=== PATIENT | female | born 1985 | race Caucasian/White ===

== ENCOUNTER 2018-08-12 10:34 | Inpatient (IN) | payer MEDICAID ==
[~2018-08-12] VITALS: Ht 162.6 cm; Wt 129.5 kg
[2018-08-12] VITALS (16 sets, daily range): BP systolic 132–172; BP diastolic 66–104; Ht 162.6 cm; Wt 129.5 kg
[2018-08-12] MEDS ORDERED: LISINOPRIL40 MG PO (10:41)
[2018-08-12 11:18] LABS: BASOPHILS 0.6 % (0-2); EOSINOPHILS 2.6 % (0-7); HEMATOCRIT 46.4 % (36.0-48.0); HEMOGLOBIN 16.6 g/dL (12-16); IMMATURE GRANULOCYTES 0.3 % (0-5); LYMPHOCYTES 24.2 % (15-50); MCH 32.5 pg (26.0-34.0); MCHC 35.8 g/dL (31.0-37.0); MCV 90.8 fL (80.0-100.0); MEAN PLATELET VOLUME 9.9 fL (7.4-10.4); MONOCYTES 8.3 % (2-11); PLATELET COUNT 226 10x3/uL (130-400); RBC 5.11 10x6/uL (4.00-5.40); RDW 12.2 % (11.5-14.5); WBC 11.1 10x3/uL (4.8-10.8)
[2018-08-12 11:32] LABS: ALBUMIN 3.7 g/dL (3.4-5.0); ALKALINE PHOSPHATASE 65 U/L (46-116); ALT (SGPT) 29 U/L (10-68); CALC OSMOLALITY 278 mosm/kg (275-300); CALCIUM 8.7 mg/dL (8.5-10.1); CARBON DIOXIDE 27.1 mmol/L (21.0-32.0); CHLORIDE - SERUM 102 mmol/L (98-107); CREATININE - SERUM 0.9 mg/dL (0.6-1.3); GLUCOSE 150 mg/dL (74-106); POTASSIUM - SERUM 3.9 mmol/L (3.5-5.1); PROTEIN - SERUM 7.9 g/dL (6.4-8.2); SODIUM 138 mmol/L (136-145); UREA NITROGEN 13 mg/dL (7-18); eGFR NON AFRICAN AMERICAN 77 mL/min (90-120)
[2018-08-12 11:35] LABS: AMYLASE - SERUM 25 U/L (25-115); LIPASE 147 U/L (73-393)
[2018-08-12 11:39] LABS: TROPONIN-I < 0.017 ng/mL (0.000-0.060)
[2018-08-12 11:55] LABS: APPEARANCE HAZY (CLEAR); BILIRUBIN NEGATIVE (NEGATIVE); COLOR YELLOW (YELLOW); GLUCOSE NEGATIVE (NEGATIVE); HCG URINE NEGATIVE (NEGATIVE); KETONE NEGATIVE (NEGATIVE); NITRITE NEGATIVE (NEGATIVE); PROTEIN NEGATIVE (NEGATIVE); UROBILINOGEN NORMAL (NORMAL)
[2018-08-12 12:00] LABS: BACTERIA MODERATE /hpf (NONE SEEN); CALCIUM OXALATE CRYSTALS OCC /hpf (NONE SEEN); EPITHELIAL CELLS 0-5 /hpf (0-5); RED CELLS - URINE OCC /hpf (0-5); WHITE CELLS - URINE 0-5 /hpf (0-5)
--- NOTE | 2018-08-12 16:07 | NUR ---
1500 PATIENT HAS A FEW RAISED RED PIMPLE AREAS ON ABDOMEN, DR PADILLA AWARE, AMBER.
--- NOTE | 2018-08-12 17:10 | NUR ---
PT ARRIVES TO UNIT VIA RR. DROWSY- VERBALLY RESPONDS APPRO TO QUESTIONS. O2 AT 4L/NC. IV LT ACS- NS AT 125CC/HR PER PUMP AT THIS TIME. ABD DRESSING INTACT- SMALL AREA SERO SANG FLUID NOTED- MARKED WITH PEN. DELA CRUZ CATH WITH YELLOW URINE RETURN.
--- NOTE | 2018-08-12 17:33 | NUR ---
methods engineer dilaudid setup and instructed pt on use.family at bedside.
--- NOTE | 2018-08-12 17:51 | NUR ---
AWAKE AND TALKING WITH FAMILY. ICE CHIPS GIVEN.
--- NOTE | 2018-08-12 18:00 | NUR ---
o2 sat drops when pt sleeping or dozing. encouraged deep breaths.
--- NOTE | 2018-08-12 18:15 | NUR ---
pt talking on cell phone. states is sore- requesting sprite. sprite given.
--- NOTE | 2018-08-12 18:30 | NUR ---
incentive cameron used.
--- NOTE | 2018-08-12 18:36 | NUR ---
REPORT OF PT BP, REQUESTING LIQUIDS,O2 AT 2 LITERS. NEW ORDER RECEIVED.
--- NOTE | 2018-08-12 18:53 | NUR ---
awake and talking with family.
--- NOTE | 2018-08-12 19:00 | NUR ---
report to pm shift.
--- NOTE | 2018-08-12 19:25 | NUR ---
PT AAOX3, BP 160/82 RA, PT VERIFIES LISINOPRIL 40MG CORRECT DOSE AND REPORTS TAKING THIS DOSE TWICE DAILY. LEFT A/C PIV SITE BENIGN TO INSPECTION, INFUSING LR AT 125ML/HR AND DILAUDID CLIENT RENEWAL SPECIALIST WITH BUTTON WITHIN EASY REACH OF PT, TOLERATING SIPS CLEAR LIQUIDS, O2 AT 2 L/MIN PER NC, CONVERSANT RESPONDING APPROPRIATELY, LUNGS CTAB, HEART RRR, HYPOACTIVE BOWEL SOUNDS X4 QUADS, DENIES NAUSEA, DENIES PAIN AT REST, USING CLIENT RENEWAL SPECIALIST BUTTON WITH THERAPEUTIC EFFECT, VERTICAL INCISION WITH BIOOCCLUSIVE DRESSING AND NOTED OLD DRAINAGE TO DRESSING, LARIOS FREELY, SCDS IN PLACE AND FUNCTIONING APPROPRIATELY. CONCENTRATED URINE NOTED TO DELA CRUZ CHAMBER. LEMON NOORVIK SODA PROVIDED UPON REQUEST, CALL LIGHT IN EASY REACH. CONTINUE TO MONITOR.
--- NOTE | 2018-08-12 20:22 | NUR ---
ADMITTING ASSESSMENT STARTED, IV IN LEFT AC INTACT WITH NO REDNESS OR EDEMA INFUSING VIA PUMP LR AT 125 ML/HR, DILAUDID ANALYTICAL LABORATORY TECHNICIAN FOR PAIN MANAGEMENT PER MD ORDERS, SEE EMAR, ASHLEY INC WITH SMALL DRESSING INTACT WITH SLIGHT DRIED DRAINAGE NOTED, FRESH ICE PACK TO ABD, DELA CRUZ CATH INTACT DRAINING DARK YELLOW URINE, SCD'S ON AND WORKING PROPERLY, FAMILY AT BEDSIDE
--- NOTE | 2018-08-12 20:32 | NUR ---
ADMITTING ASSESSMENT COMPLETED, PT ORIENTED TO ROOM, BED IN LOW POSITION, SIDE RAILS X 2, CALL LIGHT IN REACH
--- NOTE | 2018-08-12 20:50 | NUR ---
ADM JACK SUAZO PER MD ORDERS, SEE CRISTELA, PT INST ON AND DEMONSTRATED I.S. WITH GOOD EFFORT
--- NOTE | 2018-08-12 21:23 | NUR ---
PT AWAKE, VISITING WITH FRIEND, RATES PAIN 3/10, STATES "IT JUST FLUCTUATES BACK AND FORTH", PT DENIES NEEDS AT THIS TIME
--- NOTE | 2018-08-12 23:00 | NUR ---
PT VISITNG WITH FRIEND, VS OBTAINED, CONTINUES USING PAPER CAP MACHINE OPERATOR BUTTON FOR PAIN MANAGEMENT, REPORTS THAT IT KEEPS PAIN UNDER CONTROL, USING I.S. INST WITH GOOD EFFORT, REQUESTED AND SERVED FRESH H20, DENIES FURTHER NEEDS
--- NOTE | 2018-08-12 23:18 | NUR ---
REPORT TO MELINA PALACIOS RN
--- NOTE | 2018-08-13 01:00 | NUR ---
zofran 4 mg slow ivp per mdorders and pt request. ice water provided per pt request and 250 ml urine noted in urometer.
--- NOTE | 2018-08-13 02:49 | NUR ---
pt sitting up in bed listening to music, denies needs at this time. 250ml urine noted in urometer.
--- NOTE | 2018-08-13 03:50 | NUR ---
PTS IV BEEPING OCCLUDED, THIS RN TO BEDSIDE, PATIENTS IV WITHOUT SWELLING, REDNESS OR SIGNS OF INFILTRATION. TUBING STRAIGHTENED OUT AND PATIENTS ARM RESTED ON A PILLOW. NO FURTHER NEEDS IDENTIFIED AT THIS TIME. WILL CONTINUE TO MONITOR
[2018-08-13 06:38] LABS: BASOPHILS 0.1 % (0-2); EOSINOPHILS 0.1 % (0-7); HEMATOCRIT 41.2 % (36.0-48.0); HEMOGLOBIN 14.3 g/dL (12-16); IMMATURE GRANULOCYTES 0.3 % (0-5); LYMPHOCYTES 9.8 % (15-50); MCH 31.8 pg (26.0-34.0); MCHC 34.7 g/dL (31.0-37.0); MCV 91.8 fL (80.0-100.0); MEAN PLATELET VOLUME 10.1 fL (7.4-10.4); MONOCYTES 5.1 % (2-11); NEUTROPHILS 84.6 % (40-80); PLATELET COUNT 229 10x3/uL (130-400); RBC 4.49 10x6/uL (4.00-5.40); RDW 12.3 % (11.5-14.5)
[2018-08-13 06:45] LABS: CALC OSMOLALITY 280 mosm/kg (275-300); CALCIUM 8.5 mg/dL (8.5-10.1); CARBON DIOXIDE 23.4 mmol/L (21.0-32.0); CHLORIDE - SERUM 103 mmol/L (98-107); CREATININE - SERUM 0.9 mg/dL (0.6-1.3); GLUCOSE 183 mg/dL (74-106); POTASSIUM - SERUM 4.2 mmol/L (3.5-5.1); SODIUM 138 mmol/L (136-145); UREA NITROGEN 12 mg/dL (7-18); eGFR NON AFRICAN AMERICAN 77 mL/min (90-120)
[2018-08-13 07:38] VITALS: BP 110/60
--- NOTE | 2018-08-13 07:38 | NUR ---
RN TO BEDSIDE. SHIFT REPORT COMPLETED AT THIS TIME. PT IS AAOX3, HR-RRR, PPP, BREATH SOUNDS CLEAR & UNLABORED X2. BOWEL SOUNDS ACTIVE X4. VERTICAL ABD INCISION WITH LARGE PRIMAPORE DRESSING C/D/I. PIV TO LT AC WITH LR INFUSING AT 125ML/HR AND DILAUDID FARM PLANNER IN PLACE. PT STATES PAIN IS WELL CONTROLLED. SCD'S IN PLACE BILATERALLY. DELA CRUZ CATH DRAINING TO GRAVITY WITH 400ML DARK YELLOW URINE NOTED IN UROMETER. PT DENIES PAIN OR NEEDS. DR PADILLA TO ROOM TO ASSESS PT AT 0745. DRESSING REMOVED. VERTICAL INCISION WITH REYNA C/D/I AND WELL APPROXIMATED. FARM PLANNER BUTTON PRESSED PER PT. V/O RCVD TO ADVANCE PT TO REGULAR DIET, D/C DELA CRUZ CATH AND PT MAY AMB. ALSO STATES WILL PLACE ORDERS IN [facility]. PT DENIES FURTHER NEEDS AT THIS TIME. BED LOW, WHEELS LOCKED, CALL LIGHT AND PHONE WITHIN REACH, SIDE RAILS UP X2.
[2018-08-13 08:51] LABS: WBC 14.6 10x3/uL (4.8-10.8)
--- NOTE | 2018-08-13 09:17 | NUR ---
RN TO BEDSIDE. PT EATING BREAKFAST TRAY AT THIS TIME. WILL RETURN TO D/C DELA CRUZ CATH. PT IS AGREEABLE AND DENIES NEEDS.
--- NOTE | 2018-08-13 10:00 | NUR ---
THIS RN TO BEDSIDE TO INFORM PT THAT SHE WILL BE TRANSFERED TO . PT VERBALIZES UNDERSTANDING AND IS AGREEABLE. PT CURRENTLY AA&O X 4. RATES PAIN 4/10. PT PUSHES INSTRUMENTATION ENGINEER BUTTON ONCE MORE PRIOR TO MOVING. IV SITE SALINE LOCKED. SITE WNL. PT'S DELA CRUZ CATH REMOVED INTACT. APPROX 250ML URINE NOTED IN UROMETER. TOTAL OF 2200ML EMPTIED FROM DELA CRUZ BAG. PT TO SITTING ON SIDE OF BED W/OUT ASSISTANCE. PT ASSISTED W/PUTTING PANTIES AND SOCKS ON. PT TRANSFERED TO 1221. REPORT GIVEN TO Fidel KELLER RN
--- NOTE | 2018-08-13 10:20 | NUR ---
TRANSFERRED FROM L AND D TO ROOM 1221 PER . REQUESTS TO GO OUTSIDE FOR SMOKE. REQUEST DENIED STATING PATIENT NEEDS TO BE ON UNIT FOR NURSES TO MONITOR. NICOTENE PATCH OFFERED AND ACCEPTED. DR PADILLA NOTIFIED OF SAME. NO SIGNS OF RESP DISTRESS OR OTHER DISTRESS NOTED OR REPORTED. SKIN WARM DRY AND PINK. VERTICAL ABD INCISION NOTED WITH MARGINS WELL APPROXIMATED; REYNA INTACT; SLIGHT REDNESS AT REYNA; NO SIGNS OF SWELLING, DRAINAGE OR FEVER.
[2018-08-13 11:25] VITALS: BP 127/65
--- NOTE | 2018-08-13 11:25 | NUR ---
VSS. VOIDED APPROX 50ML URINE; PALE YELLOW. UP AND ABOUT IN ROOM.
--- NOTE | 2018-08-13 13:00 | NUR ---
WALKING IN HDZ. REPORTS FEELING BETTER. NO SIGNS OF DISTRESS. SKIN WARM DRY AND PINK.
--- NOTE | 2018-08-13 14:00 | NUR ---
CALLS NURSE TO REPORTS SOME LEAKAGE OF BLOODY FLUID FROM VERTICAL INCISION AT ABD. NO ACTIVE LEAKAGE NOTED. PLACED PERIPAD AT ABD SKIN FOLDS TO MAINTAIN DRYNESS.
--- NOTE | 2018-08-13 16:00 | NUR ---
WALKING IN HDZ STATING HER ABD INCISION IS STILL BURNING BUT PAIN HAS EASED SOME SINCE LAST PAIN PILL.
--- NOTE | 2018-08-13 18:00 | NUR ---
REMAINS STABLE WITH NO SIGNS OF RESP DISTRESS OR OTHER DISTRESS NOTED OR REPORTED. STATES ABD FEELS HOT TO HER BUT SKIN IS NOT FEVERISH
--- NOTE | 2018-08-13 19:12 | NUR ---
BEDSIDE REPORT DONE, PT ON PHONE. BED IN LOW POSITION WITH UPPER SIDE RAILS RAISED X2. CALL LIGHT AND PHONE WITHIN REACH. WILL CONTINUE TO MONITOR AND ASSIST PRN.
[2018-08-13 20:17] VITALS: BP 133/84
--- NOTE | 2018-08-13 20:17 | NUR ---
SHIFT ASSESSMENT COMPLETED. PT NOTED TO BE TEARFUL AND GRIMACING, PAIN 10/10, NORCO GIVEN PER REQUEST AND ORDER. PT REPORTS THAT SHE HAD JUST GOTTEN BACK IN BED FROM AMBULATING IN ROOM. BREATH SOUNDS CLEAR AND EQUAL BILATERALLY. BOWEL SOUNDS PRESENT AND ACTIVE X4, PT REPORTS THAT SHE IS PASSING FLATUS AND VOIDING WITHOUT DIFFICULTY. VERTICAL MIDLINE ABD INCISION WELL APPROXIMATED WITH REYNA INTACT. SMALL AMT SEROUS DRAINAGE NOTED ON PERIPAD. PT INSTRUCTED ON CHANGING PERIPAD OFTEN AND VERBALIZES UNDERSTANDING. NO S/S OF INFECTION NOTED TO INCISION, PT EDUCATED ON S/S TO REPORT AND VERBALIZES UNDERSTANDING. SL NOTED TO LEFT A/C, FLUSHES S DIFFICULTY, NO S/S OF INFILTRATION NOTED. PT REFUSES SCDS, STATES THAT IS GOING TO CONTINUE TO GET OOB AND AMBULATE IN ROOM AND ON UNIT. BED IN LOW POSITION WITH UPPER SIDE RAILS RAISED X2. CALL LIGHT AND PHONE WITHIN REACH. WILL CONTINUE TO MONITOR AND ASSIST PRN. ICE WATER PROVIDED.
--- NOTE | 2018-08-13 21:05 | NUR ---
PAIN REASSESSMENT COMPLETED. PAIN 01/06, DENIES NEED FOR ADDITIONAL INTERVERNTION AT THIS TIME. STATES THAT SHE IS GOING TO AMBULATE IN ROOM AND WILL CALL RN IF SHE NEEDS ADDITIONAL INTERVENTION.
--- NOTE | 2018-08-13 22:02 | NUR ---
PAIN 8/. REQUEST TORADOL, ORDER NOTED ON EMAR. GIVEN PER ORDER. PT REPORTS THAT IT HELPED HER "A LOT YESTERDAY." EDUCATED ON MED, VERBALIZES UNDERSTANDING, DENIES QUESTIONS. BED IN LOW POSITION WITH UPPER SIDE RAILS RAISED X2. CALL LIGHT AND PHONE WITHIN REACH. WILL CONTINUE TO MONITOR AND ASSIST PRN.
--- NOTE | 2018-08-13 22:30 | NUR ---
PAIN REASSESSMENT COMPLETED, "-01/06." DENIES ADDITIONAL NEED FOR INTERVENTION. STATES THAT SHE IS GOING TO REST. ASSISTED TO POSITION WITH RIGHT SIDE, EXTRA PILLOWS PROVIDED TO OFFER ABD SUPPORT. DENIES ADDITIONAL NEEDS AT THIS TIME. BED IN LOW POSITION WITH UPPER SIDE RAILS RAISED X2. CALL LIGHT AND PHONE WITHIN REACH. WILL CONTINUE TO MONITOR AND ASSIST PRN.
--- NOTE | 2018-08-13 23:23 | NUR ---
PAIN 8/10, INCISIONAL AND "SORENESS IN MY BELLY." NORCO GIVEN. VSS. PT STATES THAT SHE CONTINUES TO VOID WITHOUT DIFFICULTY. ICE WATER AND ICE CHIPS PROVIDED PER REQUEST, DENIES ADDITIONAL NEEDS AT THIS TIME. BED IN LOW POSITION WITH UPPER SIDE RAILS RAISED X2. CALL LIGHT AND PHONE WITHIN REACH. WILL CONTINUE TO MONITOR AND ASSIST PRN.
[2018-08-13 23:26] VITALS: BP 113/74
--- NOTE | 2018-08-14 00:05 | NUR ---
PAIN REASSESSMENT COMPLETED. PT RESTING WITH EYES CLOSED, OPENS EYES WHEN DOOR OPENS. PAIN 6/10, DENIES NEED FOR ADDITIONAL INTERVENTION AT THIS TIME. STATES THAT SHE IS GOING TO REST. BED IN LOW POSITION WITH UPPER SIDE RAILS RAISED X2. CALL LIGHT AND PHONE WITHIN REACH. WILL CONTINUE TO MONITOR AND ASSIST PRN.
--- NOTE | 2018-08-14 02:46 | NUR ---
ROUNDS MADE. PT RESTING WITH EYES CLOSED ON LEFT SIDE. RESPIRATIONS REGULAR AND UNLABORED, NO S/S OF DISTRESS NOTED. BED IN LOW POSITION WITH UPPER SIDE RAILS RAISED X2. CALL LIGHT AND PHONE WITHIN REACH. WILL CONTINUE TO MONITOR AND ASSIST PRN.
--- NOTE | 2018-08-14 04:10 | NUR ---
VSS. PAIN 01/06, NORCO GIVEN PER ORDER AND PT REQUEST. PT STATES THAT SHE HASN'T VOIDED SINCE AROUND 2300 LAST NIGHT. PT ENCOURAGED TO VOID AND VOID TRY TO VOID AT LEAST Q 2 HRS TO PREVENT BLADDER FILLING, VERBALIZED UNDERSTANDING. ICE WATER PROVIDED. FRIEND NOW AT BEDSIDE. BED IN LOW POSITION WITH UPPER SIDE RAILS RAISED X2. CALL LIGHT AND PHONE WITHIN REACH, WILL CONTINUE TO MONITOR AND ASSIST PRN.
[2018-08-14 04:13] VITALS: BP 133/74
--- NOTE | 2018-08-14 04:51 | NUR ---
PAIN REASSESSMENT COMPLETED. PT LAYING ON RIGHT SIDE RESTING WITH EYES CLOSED. SNORING AUBILE. RESP REGULAR AND UNLABORED, NO S/S OF DISTRESS NOTED. BED IN LOW POSITION WITH UPPER SIDE RAILS RAISED X2. CALL LIGHT AND PHONE WITHIN REACH. FRIEND REMAINS AT BEDSIDE.
--- NOTE | 2018-08-14 06:13 | NUR ---
ROUNDS MADE. PT LAYING ON LEFT SIDE RESTING WITH EYES CLOSED. RESPIRATIONS REGULAR AND UNLABORED, NO S/S OF DISTRESS NOTED. BED IN LOW POSITION WITH UPPER SIDE RAILS RAISED X2. CALL LIGHT AND PHONE WITHIN REACH. FRIEND REMAINS AT BEDSIDE.
[2018-08-14 07:27] VITALS: BP 146/84
--- NOTE | 2018-08-14 07:35 | NUR ---
AWAKE -SITTING UP IN BED. REG DIET SERVED. STATES FEELS A LITTLE NAUSEATED BUT THAT WHEN SHE EATES SHE MIGHT FEEL BETTER. RATES PAIN A 6 BUT DENIES WANTING MEDICATION AT THIS TIME. STATES SHE IS PASSING GAS AND IS UP AND ABOUT IN ROOM. DR PADILLA IN THIS AM TO SEE PT- PT STATES SHE IS STAYING THE NIGHT TONIGHT.
--- NOTE | 2018-08-14 09:44 | NUR ---
REPORTS PAIN WORSE UPON RISING FROM BED. REPORTS SEROSANGUINOUS DRNG FROM MID AREA OF ABD INCISION. NO ACTIVE OOZING. DARK RED DRNG DRIED ON PANTIES. DENIES VAGINAL DRAINAGE. NO SIGNS OF RESP DISTRESS. SKIN WARM DRY AND PINK.
--- NOTE | 2018-08-14 10:56 | NUR ---
AMBULATING IN HALLWAY.
--- NOTE | 2018-08-14 11:00 | NUR ---
THIS RN TO BEDSIDE FOR PAIN REASSESSMENT. PT CURRENTLY LYING IN BED AWAKE WATCHING TV. PAIN REASSESSED. PT REPORTS ABD SORENESS AT INCISION SITE THAT SHE RATES A 6/10. PT RECENTLY MEDICATED. NO FURTHER PAIN INTERVENTIONS REQUESTED AT THIS TIME. PT'S BED LINENS CHANGED AT THIS TI
--- NOTE | 2018-08-14 11:40 | NUR ---
THIS RN TO BEDSIDE TO REPLACE PT'S NICOTINE PATCH. PT'S PREVIUOSLY PLACED PATCH CAME OFF WHILE PT WAS IN THE SHOWER. NOTHING TO REMOVE OR WASTE. NEW PATCH PLACED TO PT'S UPPER LEFT ARM. PT PLANS TO REST AT THI TIME. BED LOW, SIDE RAILS UP X 2. CALL LIGHT AND PHONE AT PT'S SIDE.
[2018-08-14 13:13] VITALS: BP 131/76
--- NOTE | 2018-08-14 13:16 | NUR ---
vs done- no requests.
--- NOTE | 2018-08-14 13:30 | NUR ---
ROUNDS MADE. PT LYING AWAKE IN BED USING HER PHONE. PAIN AND NEEDS ASSESSED. PT REPORTS PAIN IS FINE, BUT IS "STARTING TO GET A LITTLE WORSE." NO PAIN INTERVENTIONS REQUESTED AT THIS TIME. PT UNDERSTANDS IT WILL BE APPROX 1HR UNTIL SHE CAN HAVE ADDITIONAL PAIN MEDICATION. PT IS AGREEABLE TO WAITING. DENIES NEEDS AT THIS TIME.
--- NOTE | 2018-08-14 15:00 | NUR ---
UP AND ABOUT IN ROOM AT INTERVALS. SLEEPING AT INTERVALS. NO DISTRESS NOTED. SKIN WARM DRY AND PINK.
--- NOTE | 2018-08-14 16:28 | NUR ---
REPORTS ABD INCISION CONTINUES TO DRAIN FROM LOWER 3RD, HAS PERIPAD IN PLACE TO CATCH DRAINAGE WHICH IS NOTED DARK RED AND SCANT IN AMT OVER LAST 6 HR. REPORTS PASSAGE GAS RECTALLY. DENIES DIFFICULTY URINATING. DENIES NAUSEA.
--- NOTE | 2018-08-14 19:11 | NUR ---
REPORT REC'D FROM CHAVA MCKEON. PT AMBULATORY IN [place]. STEADY GAIT NOTED. DENIES NEEDS AT THIS TIME.
--- NOTE | 2018-08-14 20:36 | NUR ---
PT AMBULATORY ON UNIT WITH FRIENDS. DENIES NEEDS. STEADY GAIT. PAIN 6-01/06, STATES THAT SHE DOESN'T WANT PAIN MEDICATION UNTIL SHE FINISHES AMBULATING.
[2018-08-14 21:09] VITALS: BP 113/72
--- NOTE | 2018-08-14 21:09 | NUR ---
BACK TO ROOM FROM AMBULATING. PAIN 8/10, NORCO GIVEN PER ORDER. SHIFT ASSESSMENT COMPLETED. VSS. PT REPORTS THAT SHE IS PASSING FLATUS BUT HAS NOT HAD BM. STATES THAT SHE IS ALSO VOIDING WITHOUT DIFFICULTY. BREATH SOUNDS CLEAR AND EQUAL BILATERALLY. BOWEL SOUNDS PRESENT AND ACTIVE X4. SL PIV TO LEFT FA FLUSHES WITHOUT DIFFICULTY, NO S/S OF INFILTRATION NOTED. ABD NONDISTENDED. INCISION WELL APPROXIMATED WITH REYNA INTACT. ERYTHEMA NOTED TO AREA SURROUNDING INCISION. PT REPORTS INCREASE IN DRAINAGE DURING THE DAY STATING IT WAS "JUST CLEAR AND A LITTLE BLOODY AT TIMES." SMALL AMT SEROUS DRAINAGE NOTED TO PAD AT THIS TIME. WILL REPORT ASSESSMENT FINDINGS TO DR. PADILLA. NO EDEMA NOTED. B/P 113/72, REFUSED LISINOPRIL. ENCOURAGED TO INCREASE PO FLUIDS, VERBALIZED UNDERSTANDING. ICE WATER PROVIDED. BED IN LOW POSITION WITH UPPER SIDE RAILS RAISED X2. CALL LIGHT AND PHONE WITHIN REACH. WILL CONTINUE TO MONITOR AND ASSIST PRN.
--- NOTE | 2018-08-14 22:00 | NUR ---
PAIN REASSESSMENT COMPLETED. PT RESTING WITH EYES CLOSED. RESPIRATIONS REGULAR AND UNLABORED, NO S/S OF DISTRESS NOTED. BED IN LOW POSITION WITH UPPER SIDE RAILS RAISED X2. CALL LIGHT AND PHONE WITHIN REACH. WILL CONTINUE TO MONITOR AND ASSIST PRN.
[2018-08-15] VITALS (7 sets, daily range): BP systolic 126–180; BP diastolic 68–100
--- NOTE | 2018-08-15 00:01 | NUR ---
DR. PADILLA ON UNIT FOR DELIVERY. ASSESSMENT FINDINGS OF INCISION REPORTED. PER DR. PADILLA HE WILL ROUND ON PT.
--- NOTE | 2018-08-15 00:42 | NUR ---
DR. PADILLA AT BEDSIDE ASSESSING INCISION. ORDERS REC'D.
--- NOTE | 2018-08-15 00:46 | NUR ---
PT AWAKE, VS OBTAINED, DENIES NEEDS OR PAIN AT THIS TIME
--- NOTE | 2018-08-15 01:38 | NUR ---
SEEMA, WELLNESS NURSE NOTIFIED OF NEW ORDER FOR VANC AND WILL GET MED AND BRING TO FLOOR.
--- NOTE | 2018-08-15 02:57 | NUR ---
PT AMBULATORY IN HDZ. REQUEST THAT PIV BE RESITED PRIOR TO STARTING ANBX INFUSION. WILL RESITE AND BEGIN ANBX ONCE PT RETURNS TO ROOM.
--- NOTE | 2018-08-15 03:14 | NUR ---
REQUESTS PAIN MED. PAIN 02/06. NORCO GIVEN PER REQUEST. L FA PIV INFILTRATED WILL RESITE AND BEGIN VANC INFUSION.
--- NOTE | 2018-08-15 03:40 | NUR ---
PIV RESITED TO R FA, EXCELLENT BLOOD RETURN NOTED. VANC INFUSION BEGAN. PT EDUCATED ON MED, DENIES QUESTIONS. BED IN LOW POSITION WITH UPPER SIDE RAILS RAISED X2. CALL LIGHT AND PHONE WITHIN REACH.
--- NOTE | 2018-08-15 04:00 | NUR ---
VS OBTAINED, PT DENIES NEEDS OR PAIN AT THIS TIME
--- NOTE | 2018-08-15 04:10 | NUR ---
PAIN REASSESSMENT COMPLETED. PT RESTING WITH EYES CLOSED. RESPIRATIONS REGULAR AND UNLABORED, NO S/S OF DISTRESS NOTED. BED IN LOW POSITION WITH UPPER SIDE RAILS RAISED X2. CALL LIGHT AND PHONE WITHIN REACH.
--- NOTE | 2018-08-15 06:05 | NUR ---
VANC INFUSION COMPLETE. PIV SL. PT LAYING ON LEFT SIDE RESTING. DENIES NEEDS AT THIS TIME. BED IN LOW POSITION WITH UPPER SIDE RAILS RAISED X2. CL AND PHONE WITHIN REACH. WILL CONTINUE TO MONITOR AND ASSIST PRN.
--- NOTE | 2018-08-15 08:58 | NUR ---
ASSESSMENT DONE. SITTING UP IN BED WATCHING TV. RATES APIN AN 8 AT THIS TIME. CO PAIN AT INCISION. STATES IS VOIDING WITHOUT PROBLEMS AND IS PASSING GAS.
--- NOTE | 2018-08-15 09:07 | NUR ---
PAIN MED GIVEN
[2018-08-15 09:52] LABS: BASOPHILS 0.5 % (0-2); HEMATOCRIT 41.7 % (36.0-48.0); HEMOGLOBIN 14.4 g/dL (12-16); IMMATURE GRANULOCYTES 0.4 % (0-5); LYMPHOCYTES 39.6 % (15-50); MCH 31.7 pg (26.0-34.0); MCHC 34.5 g/dL (31.0-37.0); MCV 91.9 fL (80.0-100.0); MONOCYTES 8.6 % (2-11); NEUTROPHILS 47.9 % (40-80); PLATELET COUNT 218 10x3/uL (130-400); RBC 4.54 10x6/uL (4.00-5.40); RDW 12.4 % (11.5-14.5); WBC 9.4 10x3/uL (4.8-10.8)
--- NOTE | 2018-08-15 12:36 | NUR ---
REPORT OF LAB TO DR PADILLA.
--- NOTE | 2018-08-15 12:45 | NUR ---
STATES HAS BEEN SLEEPING TODAY-DENIES OTHER NEEDS.
--- NOTE | 2018-08-15 13:47 | NUR ---
CO PAIN LOWER ABD- RATES PAIN AN 8 ON SCALE OF 0-10. REQUESTING PAIN MEDICATION.
--- NOTE | 2018-08-15 15:33 | NUR ---
IBUPROFEN GIVEN TO HELP WITH PAIN- RATES 7 ON SCALE OF 0-10.
--- NOTE | 2018-08-15 15:36 | NUR ---
BP UP AT CHECK - PT STATES THAT "I JUST GOT MAD" BP RECHECK AND BETTER-SEE VS RECORD.
--- NOTE | 2018-08-15 16:00 | NUR ---
DR PADILLA NOTIFIED OF ELEVATED BP AND RECHECK BP. ABD SOFT- NOT APPEAR RED AM. NO NEW ORDERS.
--- NOTE | 2018-08-15 17:32 | NUR ---
[facility]SFERRED [facility] FOR L&D NURSING STAFF CARE. AMBULATORY WITHOUT COMPLAINTS. PLANS TO SHOWER AT THIS TIME. ITEMS GIVEN. ORIENTED TO ROOM. SIDE RAILS UP, CALL LIGHT ON BED. VISITOR X 1 IN ROOM. REGULAR DIET AT BEDSIDE.
--- NOTE | 2018-08-15 17:56 | NUR ---
AMBULATING IN HALLWAY. STATES WOULD LIKE PAIN MEDICATION- RATES PAIN AN 8 ON SCALE OF 0-10. PAIN AT INCISION AREA.
--- NOTE | 2018-08-15 19:55 | NUR ---
RN TO PT BS FOR EMORY. PT RESTING IN BED IN SEMI-FOWLERS POSITION, IN NO ACUTE DISTRESS. PT IS A 32YO WF ADMITTED FOR ABDOMINAL PAIN AND EXPLORITORY LAP. PT WITH REMOVAL OF LARGE LEFT OVARIAN CYST AND FALLOPIAN TUBE. AAOX3. HR REGUALR. CRACKLES NOTED TO UPPER LOBES OF LUNGS BILATERALLY. CLEARS WITH COUGH. ABDOMEN SOFT AND TENDER WITH PALPATION. BS HYPOACTIVE TIMES 4. VERTICAL INSICION NOTED TO LOWER ABDOMEN. REYNA IN PLACE. INCISION WELL PROXIMATED. SCANT AMOUNT OF BLOOD TINGED DRAINAGE NOTED FROM SITE. EDEMATOUS, REDDENED AREA NOTED AROUND INCISION. SITE WARM TO TOUCH. SITE WAS MARKED BY DR. PADILLA LAST NIGHT, MARKED BY RN THIS SHIFT. PT STATES SHE HAS PASSED GAS SINCE SURGERY BUT HAS NOT HAD A BM. PT DENIES DIFFICULTY VOIDING. NO EDEMA NOTED TO UPPER OR LOWER EXTREMITIES BIATERALLY. 20G SL IN PLACED TO RIGHT FA, FLUSHED AT THIS TIME WITH 5CC NS WITHOUT DIFFICULTY. NO REDNESS, EDEMA, OR DRAINAGE NOTED TO SITE. SCHEDULED 2000 DOSE OF VANCOMYCIN 1GM HUNG TO INFUSE VIA PUMP AT 250CC/HR. PT RATES PAIN 3/10. DENIES ANY NEEDS AT THIS TIME. BED IN LOW POSITION, SIDE RAILS UP TIMES 2, CALL LIGHT AND PHONE IN REACH. NO FAMILY AT BS. WILL CONT TO MONITOR PT STATUS.
--- NOTE | 2018-08-15 21:15 | NUR ---
RN TO PT BS. PT RESTING IN BED IN LEFT TILT POSITION, IN NO ACUTE DISTRESS. 2100 DOSE OF LISINOPRIL 40MG PROVIDED TO PT PO. VANCOMYCIN INFUSION COMPLETE. 20G IV TO RIGHT FA SALINE LOCKED AT THIS TIME. PT DENIES ANY NEEDS. BED IN LOW POSITION, SIDE RAILS UP TIMES 2, CALL LIGHT AND PHONE IN REACH. NO FAMILY AT BS. WILL CONT TO MONITOR PT STATUS.
--- NOTE | 2018-08-15 22:36 | NUR ---
CALLED TO PT BS WITH C/O PAIN, RATES 01/06, REQUESTS MEDICATION. 1 TAB NORCO 10 AND 1 TAB IBUPROFEN PROVIDED TO PT AT THIS TIME. PT DENIES ANY FURTHER NEEDS. BED IN LOW POSITION, SIDE RAILS UP TIMES 2, CALL LIGHT AND PHONE IN REACH. VISITORS X2 AT PT BS FOR SUPPORT AND ASSISTANCE. WILL CONT TO MONITOR PT STATUS.
--- NOTE | 2018-08-15 23:47 | NUR ---
RN TO PT BS. PT RESTING IN BED IN RIGHT LATERAL POSITION, IN NO ACUTE DISTRESS. PT AWAKENS EASILY WITHOUT DIFFICULTY. VS TAKEN AND WNL. PT DENIES ANY FURTHER NEEDS AT THIS TIME. BED IN LOW POSITION, SIDE RAILS UP TIMES 2, CALL LIGHT AND PHONE IN REACH. NO FAMILY AT PT BS. WILL CONT TO MONITOR PT STATUS.
--- NOTE | 2018-08-16 01:46 | NUR ---
RN TO PT BS FOR ROUNDS. PT RESTING IN BED IN HIGH FOWLERS POSITION, TEXTING ON PHONE. PT DENIES ANY NEEDS AT THIS TIME. BED IN LOW POSITION, SIDE RAILS UP TIMES 2, CALL LIGHT AND PHONE IN REACH. NO FAMILY AT BS. WILL CONT TO MONITOR PT STATUS.
[2018-08-16 03:58] VITALS: BP 136/84
--- NOTE | 2018-08-16 03:58 | NUR ---
RN TO PT BS. PT RESTING IN BED IN SUPINE POSITION, WITH EYES CLOSED, IN NO ACUTE DISTRESS. RESPIRATIONS EVEN AND UNLABORED. PT AWAKENS EASILY WHEN SPOKEN TO. VS TAKEN AND WNL. VANCOMYCIN 1GM HUNG TO INFUSE VIA PUMP AT 250ML/HR TO EXISTING 20G SL IN RIGHT FA. PT C/O PAIN, RATES 7/10, REQUESTS MEDICATION. 1 TAB NORCO 10 PROVIDED TO PT AT THIS TIME. WATER MUG REFRESHED. PT DENIES ANY FURTHER NEEDS. BED IN LOW POSITION, SIDE RAILS UP TIMES 2, CALL LIGHT AND PHONE IN REACH. WILL CONT TO MONITOR PT STATUS.
--- NOTE | 2018-08-16 05:08 | NUR ---
RN TO PT BS. PT RESTING IN BED IN SEMI-FOWLERS POSITION, WITH EYES CLOSED, IN NO ACUTE DISTRESS. RESPIRATIONS EVEN AND UNLABORED. PT AWAKENS EASILY WHEN SPOKEN TO. VANCOMYCIN INFUSION COMPLETE. 20G IV TO RIGHT FA SALINE LOCKED AT THIS TIME. PT DENIES ANY FURTHER NEEDS AT THIS TIME. BED IN LOW POSITION, SIDE RAILS UP TIMES 2, CALL LIGHT AND PHONE IN REACH. WILL CONT TO MONITOR PT STATUS.
[2018-08-16 07:35] LABS: HEMATOCRIT 38.5 % (36.0-48.0); HEMOGLOBIN 13.7 g/dL (12-16); LYMPHOCYTES 39.6 % (15-50); MCH 32.2 pg (26.0-34.0); MCHC 35.6 g/dL (31.0-37.0); MCV 90.4 fL (80.0-100.0); MEAN PLATELET VOLUME 9.4 fL (7.4-10.4); NEUTROPHILS 47.6 % (40-80); PLATELET COUNT 208 10x3/uL (130-400); RBC 4.26 10x6/uL (4.00-5.40); RDW 11.8 % (11.5-14.5); WBC 9.6 10x3/uL (4.8-10.8)
[2018-08-16 08:03] VITALS: BP 145/86
--- NOTE | 2018-08-16 08:03 | NUR ---
SHIFT ASSESSMENT COMPLETED. LIGHT ERRYTHEMA NOTED AROUND INCISION AND WITHIN PREVIOUSLY PEN TRACY REGION. TWO DARKENED AREAS OF ERRYTHEMA NOTED LATERAL TO INCISION BILATERAL LOWER QUADRANTS. SKIN TEMP EVEN WITHOUT NOTICABLE INCREASE IN TEMP WITH PALPATION. PT SAYS SHE FEELS MUCH BETTER. SCANT YELLOW-GREEN TINGED DC NOTED ON LOWER- HORIZONTAL PLACED PERIPAD AND VERTICAL PERIPAD. CLEAN PADS ON. NORCO 10 MG GIVEN PO FOR RELIEF OF PAIN 8/10 PULLING AND BURNING ALONG INCISION SITE. WAS SITTING CROSSED LEG IN BED, ENCOURAGED TO AVOID SITTING CROSSING LEG TO DECREASE CHANCE OF DVTS, LE EDEMA NOTED, DISCUSSED RELIEF MEASURES. NO REQUESTS. SIDE RAILS UP X 2, CALL LIGHT IN REACH.
--- NOTE | 2018-08-16 08:22 | NUR ---
RESULTS OF CBC CALLED TO DR PADILLA. NO NEW ORDERS RECEIVED.
--- NOTE | 2018-08-16 09:04 | NUR ---
SAYS HER PAIN IS GETTING BETTER. NOW 01/06 DECLINES NEED FOR MOTRIN. TO CALL IF ANYTHING IS NEEDED. UP AD CAROLE.
--- NOTE | 2018-08-16 10:40 | NUR ---
SLEEPING ON LEFT SIDE. RESPIRATIONS EVEN. SIDE RAILS UP X 2, CALL LIGHT IN REACH.
--- NOTE | 2018-08-16 11:43 | NUR ---
ASKED DR PADILLA IF HE NEEDS RESULTS OF TROUGH BEFORE NEXT DOSE OF VANCOMYCIN. DISCUSSED VANCOMYCIN DOSING THAT IT IS ORDERED FOR 1 8 HRS. SAYS HE ORDERED 1 GM Q 12 HOURS AND WILL CALL ME BACK.
--- NOTE | 2018-08-16 11:48 | NUR ---
DR PADILLA CALLED BACK AND TOLD Michael CONTE RN THAT VANCOMYCIN WAS ORDERED FOR Q 12 HOURS. CONTACTED PHARMACY TO SEE IF TROUGH NEEDS TO BE REDRAWN BEFORE THE 12 HOUR DOSING. WAS TOLD BY PHARMACIST THAT YES IT WILL NEED TO BE DRAWN BEFORE 12 HOUR DOSE.
--- NOTE | 2018-08-16 12:10 | NUR ---
ATTEMPTING TO PUT DR [facility]ILL[facility] GM Q 12 [facility], NOTED HIS ORDER YESTERDAY WAS Q 12 BUT HAD BEEN CHANGED TO Q 8. NOTED IN CURRENT ORDER WRITING SYSTEM THAT PHARMACIST TO DOSE. CONTACT PHARMACIST WHO SAID SHE INCREASED DOSING FREQUENCY FROM 12 TO 8 HOURS YESTERDAY SINCE THEY HAD ORDER FOR PHARMACY TO DOSE. PHARMACIST GIVEN RESULTS OF CURRENT TROUGH. SHE PLANS TO PUT ORDER IN FOR 1.[address] PADILLA NOTIFIED FOR REASON CHANGE IN VANC YESTERDAY FROM Q 12 TO Q 8 HOURS AND NOTIFIED OF INCREASE IN DOSE AT Q 8 HR TODAY.
--- NOTE | 2018-08-16 12:46 | NUR ---
NORCO 10MG AND MOTRIN 600 MG GIVEN PO FOR RELIEF OF 8/10 INCISIONAL PULLING AND BURNING AFTER DISCUSSING PAIN MANAGMENT OPTIONS. SAYS THE LOWEST HER PAIN HAS BEEN IS 6/10. IV SITE PATENT, NO ERRYTHEMA OR EDEMA AT SITE, NML WARM TO TOUCH. INSTRUCTED TO LET RN KNOW IF ANY PAIN, SWELLING OR CHANGES AT SITE DURING INFUSION. VERBALIZED UNDERSTANDING. REGULAR DIET AT BEDSIDE. VISITORS IN ROOM.
[2018-08-16 12:52] VITALS: BP 140/90
--- NOTE | 2018-08-16 13:10 | NUR ---
TO ROOM TO CHECK ON ANTIBIOTIC INFUSION. NOTICE ERRYTHEMA AT SITE, STATES "I WAS JUST GETTING READY TO CALL YOU. I NOTICED IT WAS GETTING RED." ANTIBIOTIC STOPPED. WILL DC IV AND RESITE.
--- NOTE | 2018-08-16 13:40 | NUR ---
IV RESTARTED IN LEFT HAND WITH 18 GUAGE CATH WITHOUT DIFFICULTY. INFUSED NS, PATENT WITHOUT PAIN OR SIGNS OF INFILTRATION, ANTIBIOTIC RESTARTED. SMALL AMOUNT YELLOW DC ON PERIPADS LOCATED OVER INCISION. NO ODORS NOTED, CLEAN PADS PLACED. NOTED INCREASE AREA OF ERRYTHEMA, MARKED AREA, PT SAY IT FEELS TENDER. SAYS HER PAIN IS GETTING BETTER NOW 12/07. NO ADDITIONAL REQUESTS AT THIS TIME. SALINE LOCK REMOVED FROM INNER RIGHT F/A. WARMER PLACED OVER SITE. STATES "THAT FEELS GOOD". TO CALL RN IF ANY PAIN SWELLING OR CHANGES AT NEW IV SITE. VERBALIZED UNDERSTANDING.
--- NOTE | 2018-08-16 14:54 | NUR ---
ANTIBIOTICS COMPLETED, NO ARRYTHEMA OR SIGNS OF INFILTRATION NOTED, FLUSHED WITH NS. WARM PACK REMOVED FROM RIGHT FA. REEVALUATED ABDOMEN, ERRYTHEMA SEEMS DECREASED NOW THAT PT IS KEEPING PANT WAISTBAND LOW ON HIPS. CALLED DR PADILLA REGARDING ANOTHER PATIENT, INFORMED HIM OF AREA OF POSSIBLE INCREASED ERRYTHEMA BUT SEEMED TO BE DECREASED AFTER WEARING PANTS LOW ON HIPS. NO NEW ORDERS.
--- NOTE | 2018-08-16 16:15 | NUR ---
UP TO SHOWER. COMPLETE LINEN CHANGE DONE. FRESH PADS GIVEN. FRESH ICE WATER IN ROOM. VISITORS LEFT FOR THE DAY. SIDE RAILS UP X 2, CALL LIGHT LEFT IN REACH.
--- NOTE | 2018-08-16 18:11 | NUR ---
AROUSED FROM SLEEP WHEN ENTERING ROOM. DID NOT GET DINNER TRAY. KITCHEN NOTIFIED. C/O 7/0 INCISIONAL BURNING. NORCO 10 MG GIVEN PO FOR RELIEF. DENIES NEEDING ANYTHING ELSE AT THIS TIME.
--- NOTE | 2018-08-16 18:16 | NUR ---
DINNER TRAY BEING DELIVERED AT THIS TIME.
[2018-08-16 19:10] VITALS: BP 137/76
--- NOTE | 2018-08-16 19:10 | NUR ---
BEDSIDE REPORT RECEIVED, VSS, AFEBRILE, RESP EVEN AND UNLABORED, PT AWAKE, ALERT, AND CONVERSANT. LUNGS WITH INSPIRATORY AND EXPIRATORY WHEEZES TO UPPER AND MIDDLE LOBES, DIMINISHED TO BASES BILATERALLY. ENCOURAGED USE OF INCENTIVE SPIROMETERY AND TCDB WHILE AWAKE. HEART RRR, ABD SOFT AND NONTENDER, VERTICAL ABDOMINAL INCISION INTACT WITH REYNA WITHOUT SIGNIFICANT REDNESS, NO SWELLING OR DRAINAGE NOTED. PT REPORTS SOME MILD GAS PAIN, ENCOURAGED AMBULATION AND FREQUENT POSITION CHANGES. REPORTS BM AFTER SHOWER, TOLERATING PO INTAKE WITHOUT N/V, VOIDS WITHOUT DIFFICULTY, LARIOS FREELY, NEGATIVE RED'S SIGN B. PEDAL PULSES STRONG/=/+2 B. RATES PAIN A 5 AND PT STATES THAT IS BASELINE FOR HER, TOLERABLE AND DOES NOT NEED ADDITIONAL PAIN MED AT THIS TIME, REVIEWED PLAN OF CARE THIS PM, PT STATES UNDERSTANDING OF ALL INSTRUCTIONS PROVIDED, CALL LIGHT IN EASY REACH, BED IN LOW POSITION, BRAKES TO BED LOCKED, SIDE RAILS UP X2. CONTINUE TO MONITOR.
--- NOTE | 2018-08-16 20:34 | NUR ---
ROUNDS COMPLETED, PT AAOX3, DENIES NEEDS OR CONCERNS. SCHEDULED VANCOMYCIN 1.25 GM IVPB HUNG AND INFUSING TO LEFT HAND PIV SALINE LOCK AFTER 10ML NS FLUSH, SITE BENIGN TO INSPECTION, CONTINUE TO MONITOR.
--- NOTE | 2018-08-16 21:49 | NUR ---
ROUNDS COMPLETED, PT ASSISTED OOB TO BR, NAD NOTED. FRIENDS VISITING TO PT ROOM, DENIES NEEDS OR CONCERNS, CONTINUE TO MONITOR. CALL LIGHT IN EASY REACH.
[2018-08-16 22:17] VITALS: BP 133/84
--- NOTE | 2018-08-16 22:17 | NUR ---
C/O ABD INCISIONAL PAIN RATES 8 OF 10 ON NUMERIC PAIN SCALE, MOTRIN AND NORCO GIVEN WITH SIPS WATER, FAMILY PRESENT IN ROOM, VSS, AFEBRILE DENIES OTHER NEEDS AT THIS TIME, WILL MONITOR.
--- NOTE | 2018-08-16 22:38 | NUR ---
PT AMBULATORY IN HALLS WITH FAMILY/FRIENDS. NAD NOTED.
--- NOTE | 2018-08-16 23:05 | NUR ---
PAIN REASSESSMENT COMPLETED, PT RATES PAIN A 6 OF 10 ON NUMERIC PAIN SCALE, STATES "IT'S STARTING TO WORK NOW-I FEEL BETTER." PT SITTING UPRIGHT IN BED SCROLLING THROUGH CELL PHONE NO NEEDS VOICED, WILL MONITOR. CALL LIGHT IN EASY REACH.
--- NOTE | 2018-08-17 01:30 | NUR ---
PT SITTING UP IN BED, NAD NOTED, RESP EVEN AND UNLABORED, DENIES NEEDS OR CONCERNS, CONTINUE TO MONITOR.
--- NOTE | 2018-08-17 02:38 | NUR ---
ROUNDS COMPLETED, PT LYING RIGHT LATERAL POSITION, RESP EVEN AND UNLABORED, EYES CLOSED, NAD NOTED, CALL LIGHT IN EASY REACH, CONTINUE TO MONITOR.
[2018-08-17 04:31] VITALS: BP 148/88
--- NOTE | 2018-08-17 04:31 | NUR ---
ROUNDS COMPLETED, SCHEDULED VANCOMYCIN HUNG AND INFUSING PER PROTOCOL AND MD ORDERS TO LEFT HAND SALINE LOCK, SALINE LOCKED FLUSHED WITH 10ML NS PRIOR TO INFUSION WITHOUT DIFFICULTY, SITE BENIGN. PT C/O PAIN RATES 8 OF 10 ON NUMERIC SCALE, REQUESTS BOTH MOTRIN AND NORCO; SAME PROVIDED. VSS-PT REPORTS NORMAL BP FOR HER 148/88 TO RA, TEMP 97.5 AXILLARY. CUP OF ICE PROVIDED UPON REQUEST. CALL LIGHT IN EASY REACH, DENIES OTHER NEEDS OR CONCERNS AT THIS TIME, CONTINUE TO MONITOR.
--- NOTE | 2018-08-17 05:33 | NUR ---
PAIN REASSESSMENT COMPLETED, RATES PAIN 5 OF 10 ON NUMERICA PAIN SCALE, LEFT HAND SALINE LOCK FLUSHED WITH 10ML NS FOLLOWING COMPLETED VANCOMYCIN INFUSION, SITE BENIGN. PT DENIES FURTHER NEEDS OR CONCERNS AT THIS TIME, LIGHTS DIMMED PER REQUEST, CALL LIGHT IN EASY REACH, CONTINUE TO MONITOR.
[2018-08-17 09:00] VITALS: BP 134/85
--- NOTE | 2018-08-17 09:00 | NUR ---
ASSESSMENT COMPLETED, PT AWAKE AND ALERT WITH COMPLAINT OF ABD PAIN THAT SHE RATES AT 8/10 AND REQUEST PAIN MED IF POSSIBLE. VSS AND CHARTED WITH ASSESSMENT ON FLOWSHEET. ABDOMEN SOFT TO TOUCH, INCISION CLEAN AND DRY WITH NO SIGNS OF REDNESS OR SWELLING, COOL TO TOUCH. SIDE RAILS UP X 2 WITH PHONE AND CALL LIGHT IN REACH.
--- NOTE | 2018-08-17 09:30 | NUR ---
PAIN MED GIVEN CHARTED ON EMAR.
--- NOTE | 2018-08-17 12:45 | NUR ---
pharmacy notified for vancomycin 1.25gram
[2018-08-17] MEDS ORDERED: HYDROCODON-ACE1 EA10 PO (14:18)
[2018-08-17] MEDS ORDERED: IBUPROFEN600 MG PO (14:19)
[2018-08-17] MEDS ORDERED: SULFAMETHOXAZOL1 TA3 PO (14:20)
--- NOTE | 2018-08-17 14:45 | NUR ---
VERBAL AND WRITTEN DISCHARGE GONE OVER, PT GIVEN WRITTEN SCRIPTS FOR NORCO 5/325MG, MOTRIN 600MG AND BACTRIUM DS. WITH INFO ON EACH MED. SHE STATES HER UNDERSTANDING TO ALL INFO GIVEN AND DENIES QUESTIONS OR CONCERNS. SALINE LOCK REMOVED WITH CATH INTACT. PT STATES SHE IS GOING TO USE THE BATHROOM AND CHANGE CLOTHES WILL CALL NURSE WHEN READY TO GO.
--- NOTE | 2018-08-17 15:10 | NUR ---
TAKEN OUT TO CAR BY WHEELCHAIR, HOME BY PRIVATE CAR WITH FAMILY/FRIEND.
== END 2018-08-17 15:15 | disposition home or self-care (01) | DRG 982 ==
LOC: D.ER 10:34 → D.EDHOLD 14:00 → D.LD 14:00 → D.WS 14:00 → D.LD 16:05 → D.WS 08-13 10:24 → D.LD 08-15 17:32
PROVIDERS: Family Medicine; ADMIT Obstetrics & Gynecology
PROC: 0UT64ZZ Resection of Left Fallopian Tube, Percutaneous Endoscopic Approach (ICD-10-PCS; principal; 2018-08-12 14:00)
PROC: 0UT14ZZ Resection of Left Ovary, Percutaneous Endoscopic Approach (ICD-10-PCS; 2018-08-12 14:00)
DX: R19.00 Intra-abdominal and pelvic swelling, mass and lump, unspecified site (principal); Z68.42 Body mass index [BMI] 45.0-49.9, adult; R10.2 Pelvic and perineal pain; I10 Essential (primary) hypertension; E66.9 Obesity, unspecified; E28.2 Polycystic ovarian syndrome; F17.200 Nicotine dependence, unspecified, uncomplicated

== ENCOUNTER 2019-07-23 13:39 | Emergency (ER) | payer BC ==
[~2019-07-23] VITALS: Ht 162.6 cm; Wt 128.2 kg
[~2019-07-23 13:39] MED LIST: HYDROCODON-ACE1 EA10 PO; IBUPROFEN600 MG PO; LISINOPRIL40 MG PO; SULFAMETHOXAZOL1 TA3 PO
[2019-07-23 13:42] VITALS: Ht 162.6 cm; Wt 128.2 kg
[2019-07-23 14:01] LABS: BASOPHILS 1.6 % (0-2); EOSINOPHILS 0.7 % (0-7); HEMOGLOBIN 15.7 g/dL (12-16); IMMATURE GRANULOCYTES 0.3 % (0-5); LYMPHOCYTES 48.4 % (15-50); MCH 32.1 pg (26.0-34.0); MCHC 34.9 g/dL (31.0-37.0); MEAN PLATELET VOLUME 9.4 fL (7.4-10.4); MONOCYTES 9.8 % (2-11); NEUTROPHILS 39.2 % (40-80); PLATELET COUNT 179 10x3/uL (130-400); RBC 4.89 10x6/uL (4.00-5.40); RDW 12.4 % (11.5-14.5)
[2019-07-23 14:27] LABS: CALC OSMOLALITY 276 mosm/kg (275-300); CALCIUM 8.5 mg/dL (8.5-10.1); CARBON DIOXIDE 29.2 mmol/L (21.0-32.0); CHLORIDE - SERUM 103 mmol/L (98-107); CREATININE - SERUM 0.8 mg/dL (0.6-1.3); GLUCOSE 139 mg/dL (74-106); POTASSIUM - SERUM 3.7 mmol/L (3.5-5.1); SODIUM 138 mmol/L (136-145); UREA NITROGEN 10 mg/dL (7-18); eGFR NON AFRICAN AMERICAN 87 mL/min (90-120)
[2019-07-23 14:33] LABS: ALBUMIN 3.2 g/dL (3.4-5.0); ALKALINE PHOSPHATASE 46 U/L (46-116); ALT (SGPT) 36 U/L (10-68); BILIRUBIN - TOTAL 0.46 mg/dL (0.2-1.3); PROTEIN - SERUM 7.4 g/dL (6.4-8.2)
[2019-07-23] MEDS ORDERED: LISINOPRIL-HCT1 EAC8 PO (15:09)
[2019-07-23 16:54] VITALS: BP 114/66
== END 2019-07-23 16:52 | disposition home or self-care (01) ==
LOC: D.ER 13:39
PROVIDERS: Family Medicine
DX: I10 Essential (primary) hypertension (principal); Z91.14 Patient's other noncompliance with medication regimen; R51 Headache; E07.9 Disorder of thyroid, unspecified; Z72.0 Tobacco use